=== PATIENT | male | born 1995 | race American Indian/Alaskan Native ===

== ENCOUNTER 2023-07-22 10:26 | Emergency (ER) | payer SELFPAY | END 2023-07-22 11:45 | LOC: JD.ED 10:26 | DX: Z02.89 Encounter for other administrative examinations (principal); F17.210 Nicotine dependence, cigarettes, uncomplicated | CPT/HCPCS: 99283 ==

== ENCOUNTER 2023-07-22 19:20 | Emergency (ER) | payer SELFPAY ==
[2023-07-22] MEDS: Folic Acid 1 MG Tab PO ONE (19:57)
[2023-07-22] MEDS: Thiamine 100 MG Tab PO ONE (19:57)
[2023-07-22] MEDS: Sodium Chloride 0.9% 1,000 ML IV SCH (19:57)
[2023-07-22] MEDS: PHENobarbital Sodium 65 MG/ML SDV IVPUSH ONE (19:57)
[2023-07-22] MEDS: Diclofenac Sodium 1% Gel 100 GM Tube TOP ONE (21:04)
== END 2023-07-22 21:17 ==
LOC: JD.ED 19:20
DX: M94.0 Chondrocostal junction syndrome [Tietze] (principal); F10.930 Alcohol use, unspecified with withdrawal, uncomplicated; F17.210 Nicotine dependence, cigarettes, uncomplicated
CPT/HCPCS: 71046; 93005; 96361; 96374; 99285; A9270; J2560; J7030